=== PATIENT | female | born 1995 | race Caucasian/White ===

== ENCOUNTER 2017-10-29 05:27 | Inpatient (IN) | payer BC ==
[2017-10-29] MEDS ORDERED: Scopolamine 1.5 MG Transdermal Patch TOP SCH (06:00)
[2017-10-29] MEDS ORDERED: cefOXitin 2 GM in Sodium Chloride 0.9% 50 ML IV ONE (06:00)
[2017-10-29] MEDS ORDERED: Dextrose 5%-Lactated Ringers 1,000 ML IV SCH (06:00)
[2017-10-29] MEDS ORDERED: Gabapentin 300 MG Cap PO ONE (06:00)
[2017-10-29] MEDS ORDERED: Celecoxib 200 MG Cap PO ONE (06:00)
[2017-10-29] MEDS ORDERED: Acetaminophen 500 MG Tab PO ONE (06:00)
[2017-10-29] MEDS ORDERED: Meropenem 500 MG SDV ONE (06:38)
[2017-10-29] MEDS ORDERED: Neostigmine Methylsulfate 1 MG/ML 5 ML Syringe ONE (06:57)
[2017-10-29] MEDS ORDERED: Dexamethasone 4 MG/ML SDV ONE (06:57)
[2017-10-29] MEDS ORDERED: fentaNYL 250 MCG/5 ML SDV ONE ×2 (06:57→07:55)
[2017-10-29] MEDS ORDERED: Glycopyrrolate 0.2 MG/ML 5 ML MDV ONE (06:57)
[2017-10-29] MEDS ORDERED: Propofol 200 MG/20 ML SDV ONE (06:57)
[2017-10-29] MEDS ORDERED: Rocuronium 50 MG/5 ML Vial ONE (06:57)
[2017-10-29] MEDS ORDERED: Ondansetron 4 MG/2 ML SDV ONE (06:57)
[2017-10-29] MEDS ORDERED: Lactated Ringers 1,000 ML ONE (07:00)
[2017-10-29] MEDS ORDERED: Ropivacaine 60 ML, Dexamethasone 8 MG, EPINEPHrine 0.4 MG, Sodium Chloride 0.9% 17.6 ML NERVRT SCH ×4 (07:15)
[2017-10-29] MEDS ORDERED: Lidocaine 0.4%/D5W 2 GM/500 ML BAG IV SCH ×2 (07:15)
[2017-10-29] MEDS ORDERED: Ketamine 500 MG/5 ML MDV IV SCH (07:15)
[2017-10-29] MEDS ORDERED: Lidocaine 2% 100 MG/5 ML Syringe IVPUSH ONE (07:15)
[2017-10-29] MEDS: cefOXitin 2 GM Vial ONE ×2 (08:02→08:40)
[2017-10-29] MEDS ORDERED: hydrOXYzine HCl 100 MG/2 ML SDV ONE (09:20)
[2017-10-29] MEDS ORDERED: hydrOXYzine HCl 100 MG/2 ML SDV IM ONE (09:24)
[2017-10-29] MEDS ORDERED: Ondansetron 4 MG/2 ML SDV IVPUSH PRN (11:00)
[2017-10-29] MEDS ORDERED: Labetalol 20 MG/4 ML Syringe IVPUSH PRN (11:00)
[2017-10-29] MEDS ORDERED: hydrOXYzine HCl 100 MG/2 ML SDV IM PRN (11:00)
[2017-10-29] MEDS ORDERED: Metoclopramide 10 MG/2 ML SDV IVPUSH PRN (11:00)
[2017-10-29] MEDS ORDERED: diphenhydrAMINE 50 MG/ML SDV IVPUSH PRN (11:00)
[2017-10-29] MEDS: Pantoprazole 40 MG Vial IVPUSH SCH (11:53)
[2017-10-29] MEDS: cefOXitin 2 GM in Sodium Chloride 0.9% 50 ML IV SCH ×2 (11:54→17:38)
[2017-10-29] MEDS: Acetaminophen Soln 650 MG/20.3 ML UD Cup PO SCH ×2 (15:11→19:57)
[2017-10-29] MEDS: Gabapentin 250 MG/5 ML Solution ML 470 ML Bottle PO SCH ×2 (15:11→21:21)
[2017-10-29] MEDS ORDERED: MVI, Adult with Vitamin K 10 ML, Thiamine 200 MG, Chromium/Copper/Mang/Selen/Zn 1 ML in... IV SCH ×4 (16:00)
[2017-10-29] MEDS: Heparin Sodium 5,000 Units/ML Vial SUBCUT SCH (17:37)
[2017-10-29] MEDS: Dextrose 5%-Lactated Ringers 1,000 ML IV SCH (21:53)
[2017-10-30] MEDS: cefOXitin 2 GM in Sodium Chloride 0.9% 50 ML IV SCH (00:03)
[2017-10-30] MEDS ORDERED: Iohexol 647 MG/ML 50 ML SDV PO STA (01:56)
[2017-10-30] MEDS: Acetaminophen Soln 650 MG/20.3 ML UD Cup PO SCH ×4 (02:37→20:18)
[2017-10-30] MEDS: Heparin Sodium 5,000 Units/ML Vial SUBCUT SCH ×2 (03:39→15:40)
[2017-10-30] MEDS: Dextrose 5%-Lactated Ringers 1,000 ML IV SCH (04:02)
[2017-10-30] MEDS ORDERED: Dextrose 5%-Lactated Ringers 1,000 ML IV SCH (08:00)
[2017-10-30] MEDS: Celecoxib 200 MG Cap PO SCH (08:37)
[2017-10-30] MEDS: Gabapentin 250 MG/5 ML Solution ML 470 ML Bottle PO SCH ×3 (08:37→20:20)
[2017-10-30] MEDS: SCOPOLAMINE PATCH CHECK TOP SCH (08:37)
[2017-10-30] MEDS: ClonazePAM 0.5 MG Tab PO SCH (08:40)
--- NOTE | 2017-10-30 09:33 | CR ---
UGI wo KUB HISTORY: eval R -Y GBP FINDINGS: After administration of oral contrast, upright views were obtained. Post operative changes gastric bypass. Surgical drains in place. No evidence for leak. Contrast passes freely into proximal small bowel loops. IMPRESSION: No evidence for leak or obstruction.
[2017-10-30] MEDS: Sertraline 50 MG Tab PO SCH (10:09)
[2017-10-30] MEDS: Pantoprazole 40 MG Vial IVPUSH SCH (12:51)
--- NOTE | 2017-10-30 12:55 | OR ---
DATE OF PROCEDURE: 10/29/2017 PREOPERATIVE DIAGNOSIS: Morbid obesity. POSTOPERATIVE DIAGNOSES: 1. Morbid obesity. 2. Marked hepatomegaly. OPERATIVE PROCEDURE: 1. Laparoscopic Will-en-Y gastric bypass with long limb gastroenterostomy (46555). 2. Henrik-Cut needle biopsy (94175). ANESTHESIA: General. PHYSICAL CHEMISTRY TEACHER: Jessica Thomas PA-C. INDICATION FOR PROCEDURE: This is a 22-year-old female presenting with longstanding morbid obesity and increasingly significant comorbidities. After preoperative evaluation and discussion, she wished to proceed with a gastric bypass procedure. Potential risks of procedure including bleeding, infection, leaks from the various GI tract closures, problems with bowel obstruction over time, as well as possibility of cardiopulmonary, septic, or hemorrhagic complications leading to were discussed, and the patient wishes to proceed. DETAILS OF PROCEDURE: The patient was taken to the operating room and placed in a supine position. After general endotracheal anesthesia was induced, she was converted to a lithotomy position. An orogastric tube was placed and the abdomen was prepped and draped. At 15 cm inferior and 5 cm left of xiphoid process, a transverse incision was made and the peritoneal cavity entered under direct vision with an Optiview trocar and inflated to 15 mmHg pressure with CO2. Laparoscope was then reinserted. No underlying trocar insertion site injuries were seen. Following this, bilateral subcostal transversus abdominis plane blocks were placed using a standard solution bilaterally and direct visualization of the needle from within. Five additional trocars were placed across the upper mid abdomen, and general exploration was undertaken. The patient was noted to have a marked hepatomegaly with liver volume being roughly 2 to 3 times normal and liver grossly fatty infiltrated. Henrik-Cut needle biopsies were obtained from left lobe of the liver. Minimal bleeding from the biopsy sites was controlled with electrocautery. The omentum was then divided in the midline up to the level of the transverse colon. This allowed identification of the small bowel to the ligament of Treitz. Small bowel was then traced out 150 cm distal to that point, where it was divided transversely with a LAMONT stapler. Small bowel was then traced out an additional 150 cm where the [id number] enteroenterostomy was accomplished with internal firing of Endo-LAMONT 60 mm stapler. The common opening was then closed transversely with the same stapler, angles anastomosed, and mesenteric defect approximated with some 0 Ethibond stitch, along with fibrin sealant. The divided end of the Will limb was from the mesentery for a few centimeters, which allowed an antecolic position of the Will limb up to the level of the gastroesophageal junction without tension. The liver was then retracted anteriorly. The patient was noted to have no significant hiatal hernia. The gastrointestinal balloon catheter was then inflated to 15 mL and pulled up snugly against the EG junction. The gastric wall over the apex of the balloon was then marked with electrocautery and balloon catheter deflated and withdrawn. The lesser omental tissue adjacent to the gastric cardia was then incised, allowing dissection behind the stomach at that level. Pouch formation was initiated with a transverse firing of the LAMONT stapler at the level of the cauterized yoly in the gastric cardia. Pouch was then completed with additional firings of LAMONT stapler up to and through the angle of His. Upon completion of the pouch, both staple lines were noted to be intact. The anvil of a 25 mm EEA stapler was attached to a [place] sump type tube, and the latter was brought down through the mouth and taken out through a small opening in the gastric pouch, allowing the anvil likewise to be pulled down to within the gastric pouch. The divided end of the Will limb was opened, and the main body of the EEA stapler was passed several centimeters in the lumen of the small bowel, brought up the anvil and united with it, thus creating the gastrojejunostomy. Upon removal of the stapler, double donuts of mucosa were noted within it. The small bowel was closed off with a vascular staple line. Gastrojejunostomy was reinforced with some 3-0 Vicryl seromuscular stitch, along with fibrin sealant. A leak test was accomplished with injection of 120 mL of air in the gastric pouch, while submerged with cefoxitin-containing saline solution. No leaks were identified. One Darren-Joyce drain was then placed adjacent to the gastric cardia and taken up from there into the splenic fossa. The trocars were then sequentially removed. The peritoneal cavity deflated. The incision was closed with some 4-0 Vicryl skin stitch, and this also was used to affix the drain. The patient was taken to the recovery room in satisfactory condition. Physician economic research assistant, Jessica Thomas, played an essential role in assisting in this case, helping to position the patient, retract structures as needed, as well as suturing and cutting sutures when indicated. Her presence improved patient safety and decreased the operative time. Jonh Monroy MD /[id number]
--- NOTE | 2017-10-30 14:22 | PN ---
DATE OF SERVICE: 10/30/2017 The patient is postoperative day #1, from a laparoscopic Will-en-Y gastric bypass. No major problems were noted overnight. Her upper GI x-ray looks good. Urine output has been satisfactory. Tolerating step-1 diet. Go up to step-2 diet today. Pain control remains good with present regimen. Restart her pertinent oral medications. Go up to a step-2 diet and should likely be ready for discharge home tomorrow. Jonh Monroy MD /[id number]
[2017-10-30] MEDS: MVI, Adult with Vitamin K 10 ML, Thiamine 200 MG, Chromium/Copper/Mang/Selen/Zn 1 ML in... IV SCH ×8 (14:43→15:40)
[2017-10-31] MEDS: Acetaminophen Soln 650 MG/20.3 ML UD Cup PO SCH ×2 (02:59→08:26)
[2017-10-31] MEDS: Heparin Sodium 5,000 Units/ML Vial SUBCUT SCH (03:14)
[2017-10-31] MEDS ORDERED: Pantoprazole 40 MG Delayed-Release Granules 1 Packet PO SCH (07:30)
[2017-10-31] MEDS ORDERED: Ondansetron 4 MG Tab.DIS PO PRN (07:50)
[2017-10-31] MEDS: ClonazePAM 0.5 MG Tab PO SCH (08:26)
[2017-10-31] MEDS: Celecoxib 200 MG Cap PO SCH (08:26)
[2017-10-31] MEDS: SCOPOLAMINE PATCH CHECK TOP SCH (08:27)
[2017-10-31] MEDS: Gabapentin 250 MG/5 ML Solution ML 470 ML Bottle PO SCH (08:28)
[2017-10-31] MEDS: Sertraline 50 MG Tab PO SCH (08:29)
[2017-10-31] MEDS ORDERED: Cyanocobalamin (Vitamin B12) 1,000 MCG/ML SDV IM ONE (09:00)
--- NOTE | 2017-10-31 11:42 | DISCH ---
ADMISSION DIAGNOSES: Morbid obesity, BMI 43, anxiety, depression, polycystic ovary syndrome, and intermittent reflux. DISCHARGE DIAGNOSES: Laparoscopic Will-en-Y gastric bypass surgery and liver biopsy for morbid obesity, and hepatomegaly. HISTORY: Pilar Jacob is a 22-year-old female with longstanding history of morbid obesity and increasing comorbidities. After preoperative evaluation and discussion of possible risks and possible complications, she wished to proceed with surgical procedure. HOSPITAL COURSE: Pilar had her surgery on 10/29/2017. She had no operative complications. On postop day #1, she was started on step-2 gastric bypass diet without cereal. Her activity was good. She received dietary instruction. Vital signs were stable and she was able to be discharged to home on postop day 2. PHYSICAL EXAMINATION: GENERAL: Pilar is a pleasant 22-year-old female. Height is 5 feet 6 inches. Weight is 271 pounds. BMI is 43.7. TPR is 98.1, 80, 16, and blood pressure 152/98. HEENT: Negative. NECK: Supple. HEART: Regular rate and rhythm. LUNGS: Clear. ABDOMEN: Incisions look good, 4 x 4 placed over ALANA drain site and abdominal binder has been on. EXTREMITIES: Without peripheral edema. DISPOSITION: Discharged to home. CONDITION: Stable and improving. FOLLOWUP: Followup appointment with Jonh Monroy MD., on 11/07/2017 at 11 a.m. HOME PRESCRIPTIONS: 1. Tylenol 650 mg oral q.6 hours x2 weeks. 2. Zofran ODT 4 mg every 4 hours p.r.n. nausea #30. 3. Change bupropion 300 mg oral daily to 150 mg b.i.d. for better absorption. 4. She is to resume taking melatonin 10 mg oral at bedtime p.r.n. insomnia. 5. Celebrex 200 mg oral daily, 14 pills were issued. She is to take one a day till gone. 6. Zoloft 100 mg oral daily p.o. and discontinue taking vitamins and supplements until after first postoperative appointment. DIET: After discharge, drink 8 to 10 glasses of water a day. Step-2 gastric bypass diet with no cereal until 11/12/2017. ACTIVITY: No lifting greater than 10 pounds for 2 weeks. Other activity, walk 6 times daily, distance and time as tolerated. Start inside your home. Driving after discharge, do not drive for one week. Shower/bathing, may shower. DISCHARGE INSTRUCTIONS: Notify provider if any fever, increased pain, nausea, or vomiting. Keep site clean and dry. Wear abdominal binder for 2 weeks and then as tolerated. Use incentive spirometer 10 times every hour while awake for one week.
== END 2017-10-31 10:00 | disposition home or self-care (01) | DRG 403 ==
LOC: JP.SDSSCHI 05:27 → JP.SDS 05:27 → EDSTATUS 09:30 → JP.MS 09:50
PROVIDERS: ADMIT Surgery; ATTEND Surgery
PROC: 0D164ZA Bypass Stomach to Jejunum, Percutaneous Endoscopic Approach (ICD-10-PCS; principal; 2017-10-29)
PROC: 0FB24ZX Excision of Left Lobe Liver, Percutaneous Endoscopic Approach, Diagnostic (ICD-10-PCS; 2017-10-29)
PROC: 3E0T3BZ Introduction of Anesthetic Agent into Peripheral Nerves and Plexi, Percutaneous Approach (ICD-10-PCS; 2017-10-29)
DX: E66.01 Morbid (severe) obesity due to excess calories (principal); Z68.41 Body mass index [BMI] 40.0-44.9, adult; R16.0 Hepatomegaly, not elsewhere classified; K76.0 Fatty (change of) liver, not elsewhere classified; E28.2 Polycystic ovarian syndrome; F41.9 Anxiety disorder, unspecified; F32.9 Major depressive disorder, single episode, unspecified
CPT/HCPCS: 36415; 74240; 74240-26; 81025; 86850; 86900; 86901; 88307; 88313; 94762; A9270-GY; C9113; J0171; J0694; J1100; J1644; J2001; J2185; J2405; J2704; J2710; J2795; J3010; J3410; J3411; J3420; J3490; J7030; J7042; J7050; J7120; Q9967